=== PATIENT | female | born 1970 | race Caucasian/White ===

== ENCOUNTER 2016-07-17 17:54 | Emergency (ER) | payer OTHER ==
[2016-07-17] MEDS ORDERED: SODIUM CHLORIDE 0.9% 1,000 ML ONE (20:42)
[2016-07-17] MEDS ORDERED: KETOROLAC 30 MG/ML VIAL ONE (20:51)
[2016-07-17] MEDS ORDERED: Meclizine HCl 25 MG TAB ONE (20:51)
== END 2016-07-17 22:26 | disposition home or self-care (01) ==
LOC: ER 17:54
DX: J10.1 Influenza due to other identified influenza virus with other respiratory manifestations (principal); R55 Syncope and collapse
CPT/HCPCS: 36415; 71020; 80053; 81001; 84703; 85025; 87804; 93005; 96361; 96374; 99285; J1885